=== PATIENT | female | born 1945 | race Caucasian/White ===

== ENCOUNTER 2024-08-18 07:45 | Day surgery (SDC) | payer MEDICARE ==
[2024-08-15 11:32] VITALS: BP 108/58
[~2024-08-18] VITALS: Ht 162.6 cm; Wt 50.0 kg
[~2024-08-18 07:45] MED LIST: IBLOOD GLUCOSE TEST STRIP 1 EA TEST VI PRN; LACTATED RINGER'S 1,000 ML IV SCH; LIDOCAINE HCL 1% 5 ML SDV INJ ONE; LIPITOR10 MG; MIDAZOLAM HCL 5 MG/5 ML VIAL IV PRN; MULTI VITAMIN1 EACH PO; POLYETHYLENE GL17 GM PO; TYMLOS1.56 ML; ZOLOFT100 MG PO; fentaNYL citrate 100 MCG/2 ML VIAL IV PRN
[2024-08-18 08:11] VITALS: BP 121/56
[2024-08-18] MEDS ORDERED: propofoL 200 MG/20 ML VIAL ONE (10:01)
[2024-08-18] MEDS ORDERED: ePHEDrine sulfate 50 MG/ML AMP ONE (10:01)
[2024-08-18] MEDS ORDERED: LIDOCAINE HCL 2% 5 ML SDV ONE (10:02)
--- NOTE | 2024-08-18 10:25 | NUR ---
08/18/24 1025 Shahab Cabello 1010: PT ARRIVED TO PACU VIA STRETCHER. PT NON AROUSABLE ON ARRIVAL. PT ON 3L NC. 1015: PT AROUSABLE AT THIS TIME. PT REMAINS ON 3L NC 1020: TITRATED PATIENT TO RA AT THIS TIME. PT HAS NO COMPLAINTS OF PAIN OR NAUSEA.
[2024-08-18 10:31] VITALS: BP 109/52
--- NOTE | 2024-08-18 11:07 | OR ---
[facility] [address], [place] [address] Signed DATE OF OPERATION: 08/18/2024 SURGEON: Jovita Daniels MD PREOPERATIVE DIAGNOSES: 1. Personal history of colonic polyps starting in 2013 at age 66. 2. Chronic constipation. POSTOPERATIVE DIAGNOSES: 1. 5 mm polyp at 30 cm in left colon. 2. 4 mm polyp at hepatic flexure. 3. Tortuous colon. 4. Internal anal skin tags x2. PROCEDURE: Colonoscopy with hot biopsy. ESTIMATED BLOOD LOSS: None. INDICATIONS: Renee is a 78-year-old female, asked to see me for a followup colonoscopy. She comes with her . They had lived in [place], [place] for many years. They finally decided to come to [place], [place] to be in a less populated area. Renee had a colonoscopy in 2012 at the age of 66. She had a 1.5 cm cecal adenomatous polyp removed. She went back in 2015 at the age of 71 and had an adenomatous polyp removed. She went back again in 2020 at age of 75 and had two adenomatous polyps removed. Unfortunately, her bowel prep was poor on that occasion. She was asked to return in two years. She does run on the constipated side requiring MiraLAX. She has no family history of colon cancer or polyps. She did spend some time as an inpatient and ended up having 25 ECT treatments. Consequently, her memory is not the best. Her is able to fill in the details. In the office, I gave them a pamphlet on colonoscopy. They reminded me that I helped her with a colonoscopy about two or three years ago. They understand colonoscopy well. There is risk including, but not limited to gas bloating, crampy abdominal pain, bleeding, perforation requiring surgery, and missed diagnosis. We also reviewed the written instructions for a bowel prep line by line. It is the same bowel prep that he has taken before. They also understand the need for monitored anesthesia care given her rather significant issues including her difficult colon and her impaired cognition. That actually proved to be a very keith today. She had expressed understanding along with her . They had wished to proceed. Electronically Signed By: JOVITA DANIELS MD 08/18/24 1107 PATIENT NAME: RENEE FERRO OPERATIVE REPORT DATE OF : 49 REPORT #: [id number] PHYSICIAN: JOVITA DANIELS MD PCP: SERGIO BROWN DO REPORT IS CONFIDENTIAL AND NOT TO BE RELEASED WITHOUT AUTHORIZATION [facility] [address], [place] [address] Signed DESCRIPTION OF PROCEDURE: Renee was taken into the endoscopy suite and placed in the left lateral decubitus position. She was given monitored anesthesia care with propofol infusion per our nurse carding supervisor. A digital rectal exam was performed. This was unremarkable. No external hemorrhoids. Good sphincter tone. No masses. The adult colonoscope was introduced and we had encountered a tortuous colon all the way through the sigmoid, left and hepatic flexure. We had rotated her into the supine position and increased the propofol. We used some abdominal compression and eventually made it down into the cecum itself. We could finally see the appendiceal orifice and the ileocecal valve. The scope was then slowly withdrawn. We removed the two polyps mentioned above with the help of hot biopsy forceps. We did not see any diverticulosis. We were impressed with the tortuous colon even on withdrawal the scope. Once in the rectum, the scope was retroflexed and she had two small internal anal skin tags. After this, the gas was suctioned out and the colonoscope removed. We are still waiting for printer for pictures. RECOMMENDATIONS: Renee will follow up in my office in 7 to 14 days to review her results. She most likely could be on the five year plan, but certainly can come back in three years given the difficulty of her colonoscopy. Jovita Daniels MD ALB/MODL /[id number] cc: DO Jovita Le MD Copies: SERGIO BROWN ANDREW L MD ~ Electronically Signed By: JOVITA DANIELS MD 08/18/24 1107 PATIENT NAME: RENEE FERRO OPERATIVE REPORT DATE OF : 49 REPORT #: [id number] PHYSICIAN: JOVITA DANIELS MD PCP: SERGIO BROWN DO REPORT IS CONFIDENTIAL AND NOT TO BE RELEASED WITHOUT AUTHORIZATION
--- NOTE | 2024-08-24 18:54 | PATH ---
[facility] [address] [place], [place] [address] Signed SPECIMEN(S): A PROXIMAL LEFT COLON POLYP SPECIMEN(S): B HEPATIC FLEXURE COLON POLYP SPECIMEN SOURCE: A. PROXIMAL LEFT COLON POLYP B. HEPATIC FLEXURE COLON POLYP CLINICAL HISTORY: Pre: History of adenomatous polyps. Post: Tortuous colon. Colon polyps. FINAL PATHOLOGIC DIAGNOSIS: A. Proximal left colon polyp: - Polypoid fragment of benign colonic mucosa. - No colitis or neoplasm identified. B. Hepatic flexure colon polyp: - Tubular adenoma. - Negative for high-grade dysplasia or malignancy. [facility] MICROSCOPIC EXAMINATION: Histologic sections of all submitted blocks are examined by light microscopy. These findings, together with the gross examination, support the pathologic diagnosis. GROSS DESCRIPTION: A. The specimen, labeled and designated "Eddie Ramfredo, proximal left colon polyp," is received in formalin and consists of one nicole soft tissue fragment, 0.2 cm. Entirely submitted in (A1). B. The specimen, labeled and designated "Eddie Ramig, hepatic flexure colon polyp," is received in formalin and consists of one nicole soft tissue fragment, 0.1 cm. Entirely submitted in (B1). JS (under the direct supervision of a pathologist) The Gross Description was prepared using a voice recognition system. The report was reviewed for accuracy; however, sound-alike word errors, addition and/or deletions may occur. If there is any question about this report, please contact Client Services. ADDITIONAL NOTES: Immunohistochemical and/or in situ hybridization studies if performed in this case included appropriate positive controls that reacted as expected. This test was developed and its performance PATIENT NAME: RENEE FERRO PATHOLOGY DATE OF : 49 REPORT #: [id number] PHYSICIAN: [facility] PCP: SERGIO BROWN DO REPORT IS CONFIDENTIAL AND NOT TO BE RELEASED WITHOUT AUTHORIZATION [facility] [address], [place] [address] Signed characteristics determined by [facility]. It has not been cleared or approved by the U.S. Food and Drug Administration. The FDA has determined that such clearance or approval is not necessary. This test is used for clinical purposes. It should not be regarded as investigational or for research. [facility] is certified under the Clinical Laboratory Improvement Amendments of 1988 (CLIA) as qualified to perform high complexity clinical laboratory testing. PERFORMING LABORATORY: Technical component was performed by [facility], [address] [place] [id number] (CLIA# [id number]). Professional interpretation was performed by [facility], [address] [place] [id number] (CLIA#: [id number]). Diagnostician: Agustin Powers MD Pathologist Electronically Signed 08/24/2024 Copies: ~ PATIENT NAME: RENEE FERRO PATHOLOGY DATE OF : 49 REPORT #: [id number] PHYSICIAN: ROSE GARCIA PCP: SERGIO BROWN DO REPORT IS CONFIDENTIAL AND NOT TO BE RELEASED WITHOUT AUTHORIZATION
== END 2024-08-18 10:50 | disposition home or self-care (01) ==
LOC: DS 07:45
PROVIDERS: ATTEND Colon & Rectal Surgery
PROC: 0DBL8ZZ Excision of Transverse Colon, Via Natural or Artificial Opening Endoscopic (ICD-10-PCS; 2024-08-18)
PROC: 0DBG8ZZ Excision of Left Large Intestine, Via Natural or Artificial Opening Endoscopic (ICD-10-PCS; principal; 2024-08-18 09:15)
DX: Z12.11 Encounter for screening for malignant neoplasm of colon (principal); D12.3 Benign neoplasm of transverse colon; K63.5 Polyp of colon; K63.89 Other specified diseases of intestine; K64.8 Other hemorrhoids; K59.09 Other constipation; F32.4 Major depressive disorder, single episode, in partial remission; E78.2 Mixed hyperlipidemia; E55.9 Vitamin D deficiency, unspecified; Z86.0101 Personal history of adenomatous and serrated colon polyps; Z87.891 Personal history of nicotine dependence; Z79.899 Other long term (current) drug therapy; Z88.8 Allergy status to other drugs, medicaments and biological substances
CPT/HCPCS: 00811; 88305; J2003; J2704